=== PATIENT | male | born 1960 | race African-American/Black ===

== ENCOUNTER 2020-06-30 09:11 | Inpatient (IN) ==
[2020-06-30] MEDS ORDERED: MAGNESIUM SULF RIDER 2 GM in PREMIX 1 EACH IV STA (09:17)
[2020-06-30 09:31] LABS: Basophils # 0.1 10*3/uL (0.0-0.2); Basophils % 0.5 % (0.0-0.8); Eosinophils # 0.1 10*3/uL (0.0-0.87); Eosinophils % 0.9 % (0.00-10.9); Hematocrit 49.7 VOL% (42.0-52.0); Hemoglobin 15.3 GM/DL (14.0-18.0); Immature Granulocytes % 0.7 %; Immature Granulocytes Absolute 0.07 #; Lymphocytes # 7.1 10*3/uL (1.4-4.0); Lymphocytes % 67.9 % (21.2-54.2); Mean Corpuscular HGB Conc 30.8 GM/DL (32-36); Mean Corpuscular Volume 93.4 FL (87-102); Mean Platelet Volume 11.4 FL (9.6-12.0); Monocytes % 4.6 % (1.7-12.7); Neutrophils % 25.4 % (38.7-73.9); Platelet Count 128 T/CUMM (130-400); Red Blood Count 5.32 MC/CUMM (3.8-5.5); Red Cell Distribution Width 15.4 % (9.3-17.3); White Blood Count 10.4 T/CUMM (4-12)
[2020-06-30 09:41] LABS: PT Patient Result 10.9 SECS (9.8-11.9); Partial Thromboplastin Time 30.8 SECS (23.9-33.8)
[2020-06-30 09:55] LABS: Eosinophils 2 % (0-10); Lymphocytes 74 % (20-55); Segmented Neutrophils 18 % (50-85); Total Cells Counted 100
[2020-06-30 09:56] LABS: Atypical Lymphocytes Few
[2020-06-30] MEDS ORDERED: BISACODYL 5 MG TABLET PO PRN (10:12)
[2020-06-30] MEDS ORDERED: ENOXAPARIN 80 MG/0.8 ML SYRINGE SUBCUT ONE (10:12)
[2020-06-30] MEDS ORDERED: ACETAMINOPHEN 325 MG TABLET PO PRN (10:12)
[2020-06-30] MEDS ORDERED: ONDANSETRON 4 MG/2 ML VIAL IV PRN (10:12)
[2020-06-30] MEDS ORDERED: ENOXAPARIN 30 MG/0.3 ML SYRINGE ONE (10:12)
[2020-06-30] MEDS ORDERED: ASPIRIN 300 MG SUPP RECTAL ONE (10:12)
[2020-06-30] MEDS ORDERED: ENOXAPARIN 30 MG/0.3 ML SYRINGE IV STA (10:17)
[2020-06-30 10:18] LABS: Bilirubin,Total 0.8 MG/DL (0.2-1.0); Calcium 8.5 MG/DL (8.5-10.1); Osmolality,Calculated 280.7 MOS/KG (273-304); Potassium 3.9 MMOL/L (3.5-5.1)
[2020-06-30] MEDS ORDERED: ASPIRIN 300 MG SUPP RECTAL STA (10:18)
[2020-06-30] MEDS ORDERED: ENOXAPARIN 100 MG/ML SYRINGE SUBCUT STA (10:18)
[2020-06-30] MEDS ORDERED: SODIUM CHLORIDE 0.45% 1,000 ML IV SCH (10:30)
[2020-06-30] MEDS ORDERED: NICOTINE 14 MG/24 HR PATCH TRANSDERM SCH (11:00)
[2020-06-30] MEDS ORDERED: CLOPIDOGREL 300 MG TABLET PO STA (11:51)
[2020-06-30] MEDS: AMIODARONE INJ 450 MG in DEXTROSE 5% 241 ML IV SCH (12:47)
[2020-06-30] MEDS: ROSUVASTATIN 20 MG TABLET PO SCH (13:00)
[2020-06-30] MEDS ORDERED: HEPARIN/NACL 0.9% 2 UNITS/ML 500 ML IV ONE (13:06)
[2020-06-30] MEDS: SODIUM CHLORIDE 0.45% 1,000 ML IV SCH (13:28)
[2020-06-30] MEDS ORDERED: MIDAZOLAM 2 MG/2 ML VIAL IV ONE (13:51)
[2020-06-30] MEDS ORDERED: MIDAZOLAM 2 MG/2 ML VIAL ONE (13:53)
[2020-06-30] MEDS ORDERED: DEXTROSE 50% 25 GM/50 ML VIAL IV PRN (13:58)
[2020-06-30] MEDS ORDERED: GLUCAGON 1 MG VIAL IM PRN (13:58)
[2020-06-30] MEDS ORDERED: MAGNESIUM SULF RIDER 1 GM in PREMIX 1 EACH IV PRN (14:08)
[2020-06-30] MEDS ORDERED: fentaNYL 100 MCG/2 ML VIAL IV ONE (14:30)
[2020-06-30] MEDS ORDERED: CISATRACURIUM 10 MG/5 ML VIAL IV ONE (14:30)
[2020-06-30] MEDS: CISATRACURIUM 200 MG in SODIUM CHLORIDE 0.9% 180 ML IV PRN (15:00)
[2020-06-30] MEDS: fentaNYL INJ 1,250 MCG in SODIUM CHLORIDE 0.9% 225 ML IV PRN ×2 (15:00→23:00)
[2020-06-30 15:28] LABS: ABG Base Excess -1.9 MMOL/L (-2.5-2.5); ABG HCO3 22.9 MMOL/L (20-26); ABG TCO2 17.9 MMOL/L (23-27)
[2020-06-30] MEDS: METOPROLOL TARTRATE 25 MG TABLET PO SCH ×2 (15:50→20:30)
[2020-06-30] MEDS: MINERAL OIL/PETROLATUM OPH OINT 3.5 GM TUBE BOTH EYES SCH ×2 (15:51→20:30)
[2020-06-30 15:56] LABS: CKMB % 2.8 %
[2020-06-30 16:04] LABS: Troponin I 4.99 NG/ML (0.00-0.045)
[2020-06-30 16:14] LABS: Bilirubin,Urine Negative (Negative); Blood, Urine Large mg/dL (Negative); Glucose,Urine (UA) 50 mg/dL (Negative); Ketones,Urine Negative (Negative); Nitrite,Urine Negative (Negative); Protein,Urine >=500 MG/DL; Urine Appearance CLEAR (Clear); Urine Color Yellow (Yellow); Urine Specific Gravity > 1.060 (1.001-1.035); Urine Urobilinogen < 2.0 EU/DL (0.2-1.0)
[2020-06-30 16:21] LABS: Mucus,Urine Occasional /LPF (Occasional); RBC,Urine 57 /HPF (0-4); Squamous Epithelial Cell,Urine Occasional /HPF (0-10)
[2020-06-30 16:44] LABS: Basophils % 0.2 % (0.0-0.8); Hematocrit 43.4 VOL% (42.0-52.0); Hemoglobin 14.9 GM/DL (14.0-18.0); Immature Granulocytes % 0.7 %; Immature Granulocytes Absolute 0.06 #; Lymphocytes # 0.9 10*3/uL (1.4-4.0); Lymphocytes % 9.3 % (21.2-54.2); Mean Corpuscular HGB Conc 34.3 GM/DL (32-36); Mean Corpuscular Volume 86.5 FL (87-102); Mean Platelet Volume 12.3 FL (9.6-12.0); Monocytes % 9.1 % (1.7-12.7); Neutrophils % 80.7 % (38.7-73.9); Platelet Count 152 T/CUMM (130-400); Red Blood Count 5.02 MC/CUMM (3.8-5.5); Red Cell Distribution Width 15.1 % (9.3-17.3); White Blood Count 9.1 T/CUMM (4-12)
[2020-06-30 16:45] LABS: Albumin 3.3 G/DL (3.4-5.0); Bilirubin,Total 0.6 MG/DL (0.2-1.0); Calcium 8.9 MG/DL (8.5-10.1); Osmolality,Calculated 274.8 MOS/KG (273-304); Potassium 4.2 MMOL/L (3.5-5.1); Total Protein 6.7 G/DL (6.4-8.3)
[2020-06-30 16:51] LABS: PT Patient Result 10.7 SECS (9.8-11.9); Partial Thromboplastin Time 36.4 SECS (23.9-33.8)
[2020-06-30] MEDS: INSULIN REGULAR 100 UNIT/ML IV SCH ×2 (17:02→21:46)
[2020-06-30 17:24] LABS: Barbiturates Screen,Urine Negative (Negative); Benzodiazepines Screen,Urine Negative (Negative); Cannabinoid Screen,Urine Negative (Negative); Opiate Screen,Urine Negative (Negative); Phencyclidine Screen,Urine Negative (Negative)
[2020-06-30 20:57] LABS: ABG Base Excess -2.4 MMOL/L (-2.5-2.5); ABG HCO3 22.4 MMOL/L (20-26); ABG Oxygen Saturation 99.1 % (95-100); ABG PCO2 29.3 MM HG (35-48); ABG PH 7.447 (7.35-7.45); ABG TCO2 17.2 MMOL/L (23-27)
[2020-06-30 21:05] LABS: Basophils % 0.3 % (0.0-0.8); Eosinophils % 0.1 % (0.00-10.9); Hematocrit 43.3 VOL% (42.0-52.0); Immature Granulocytes % 0.3 %; Immature Granulocytes Absolute 0.02 #; Lymphocytes # 1.2 10*3/uL (1.4-4.0); Lymphocytes % 17.5 % (21.2-54.2); Mean Corpuscular HGB Conc 34.6 GM/DL (32-36); Mean Corpuscular Volume 84.7 FL (87-102); Mean Platelet Volume 10.9 FL (9.6-12.0); Monocytes % 6.7 % (1.7-12.7); Neutrophils % 75.1 % (38.7-73.9); Platelet Count 136 T/CUMM (130-400); Red Blood Count 5.11 MC/CUMM (3.8-5.5); Red Cell Distribution Width 14.6 % (9.3-17.3); White Blood Count 6.7 T/CUMM (4-12)
[2020-06-30 21:17] LABS: PT Patient Result 10.3 SECS (9.8-11.9); Partial Thromboplastin Time 37.9 SECS (23.9-33.8)
[2020-06-30 21:32] LABS: Calcium 8.5 MG/DL (8.5-10.1); Osmolality,Calculated 278.5 MOS/KG (273-304)
[2020-06-30 21:34] LABS: Anisocytosis Slight; Lymphocytes 21 % (20-55); Microcytosis Slight; Platelet Estimate Adequate; Segmented Neutrophils 71 % (50-85); Total Cells Counted 100
[2020-06-30 21:35] LABS: Troponin I 18.8 NG/ML (0.00-0.045)
[2020-07-01] MEDS: INSULIN REGULAR 100 UNIT/ML IV SCH ×7 (00:39→22:07)
[2020-07-01 03:56] LABS: Basophils % 0.3 % (0.0-0.8); Eosinophils % 0.4 % (0.00-10.9); Hematocrit 43.7 VOL% (42.0-52.0); Hemoglobin 14.5 GM/DL (14.0-18.0); Immature Granulocytes % 0.4 %; Immature Granulocytes Absolute 0.03 #; Lymphocytes # 2.2 10*3/uL (1.4-4.0); Lymphocytes % 30.2 % (21.2-54.2); Mean Corpuscular HGB Conc 33.2 GM/DL (32-36); Mean Corpuscular Volume 88.1 FL (87-102); Mean Platelet Volume 12.3 FL (9.6-12.0); Monocytes % 10.9 % (1.7-12.7); Neutrophils % 57.8 % (38.7-73.9); Platelet Count 125 T/CUMM (130-400); Red Blood Count 4.96 MC/CUMM (3.8-5.5); Red Cell Distribution Width 14.9 % (9.3-17.3); White Blood Count 7.2 T/CUMM (4-12)
[2020-07-01 04:30] LABS: Bilirubin,Urine Negative (Negative); Blood, Urine Moderate mg/dL (Negative); Glucose,Urine (UA) Negative (Negative); Ketones,Urine Negative (Negative); Nitrite,Urine Negative (Negative); Protein,Urine Negative; Urine Appearance CLEAR (Clear); Urine Color Yellow (Yellow); Urine Specific Gravity 1.024 (1.001-1.035); Urine Urobilinogen < 2.0 EU/DL (0.2-1.0)
[2020-07-01 04:34] LABS: RBC,Urine 2 /HPF (0-4); Squamous Epithelial Cell,Urine Occasional /HPF (0-10); WBC,Urine 3 /HPF (0-6)
[2020-07-01] MEDS: AMIODARONE INJ 450 MG in DEXTROSE 5% 241 ML IV SCH (04:40)
[2020-07-01 04:41] LABS: ABG Base Excess -2.5 MMOL/L (-2.5-2.5); ABG HCO3 18.9 MMOL/L (20-26); ABG Oxygen Saturation 98.2 % (95-100); ABG PCO2 24.9 MM HG (35-48); ABG PH 7.497 (7.35-7.45); ABG PO2 105.4 MM HG (80-95); ABG TCO2 19.6 MMOL/L (23-27)
[2020-07-01 04:56] LABS: Albumin 2.7 G/DL (3.4-5.0); Bilirubin,Total 0.9 MG/DL (0.2-1.0); Calcium 8.6 MG/DL (8.5-10.1); Potassium 3.6 MMOL/L (3.5-5.1); Risk Ratio 2.33; Thyroid Stimulating Hormone 1.47 uIU/ml (0.358-3.74); Total Protein 6.6 G/DL (6.4-8.3); VLDL CHOLESTEROL 81.2 MG/DL
[2020-07-01] MEDS: POTASSIUM CHLORIDE RIDER 100 ML IV PRN ×2 (05:49→10:34)
[2020-07-01 06:44] LABS: PT Patient Result 10.5 SECS (9.8-11.9); Partial Thromboplastin Time 33.7 SECS (23.9-33.8)
[2020-07-01 07:03] LABS: Troponin I 74.6 NG/ML (0.00-0.045)
[2020-07-01] MEDS: fentaNYL INJ 1,250 MCG in SODIUM CHLORIDE 0.9% 225 ML IV PRN ×3 (07:15→23:23)
[2020-07-01 09:10] LABS: Basophils # 0.1 10*3/uL (0.0-0.2); Basophils % 0.8 % (0.0-0.8); Eosinophils % 0.5 % (0.00-10.9); Hematocrit 41.8 VOL% (42.0-52.0); Hemoglobin 14.3 GM/DL (14.0-18.0); Immature Granulocytes % 0.2 %; Immature Granulocytes Absolute 0.01 #; Lymphocytes # 2.1 10*3/uL (1.4-4.0); Lymphocytes % 32.4 % (21.2-54.2); Mean Corpuscular HGB Conc 34.2 GM/DL (32-36); Mean Corpuscular Volume 84.1 FL (87-102); Monocytes % 8.5 % (1.7-12.7); Neutrophils % 57.6 % (38.7-73.9); Platelet Count 119 T/CUMM (130-400); Red Blood Count 4.97 MC/CUMM (3.8-5.5); Red Cell Distribution Width 14.5 % (9.3-17.3); White Blood Count 6.3 T/CUMM (4-12)
[2020-07-01] MEDS: ROSUVASTATIN 20 MG TABLET PO SCH (09:18)
[2020-07-01] MEDS: MINERAL OIL/PETROLATUM OPH OINT 3.5 GM TUBE BOTH EYES SCH ×3 (09:18→21:15)
[2020-07-01] MEDS: PANTOPRAZOLE 40 MG VIAL IV SCH (09:18)
[2020-07-01] MEDS: CLOPIDOGREL 75 MG TABLET PO SCH (09:18)
[2020-07-01] MEDS: METOPROLOL TARTRATE 25 MG TABLET PO SCH ×2 (09:18→14:13)
[2020-07-01 09:19] LABS: PT Patient Result 10.4 SECS (9.8-11.9); Partial Thromboplastin Time 31.9 SECS (23.9-33.8)
[2020-07-01 09:46] LABS: CKMB % 5.1 %; Calcium 8.3 MG/DL (8.5-10.1); Osmolality,Calculated 271.8 MOS/KG (273-304); Potassium 3.7 MMOL/L (3.5-5.1)
[2020-07-01] MEDS: SODIUM CHLORIDE 0.45% 1,000 ML IV SCH (09:56)
[2020-07-01] MEDS: CISATRACURIUM 200 MG in SODIUM CHLORIDE 0.9% 180 ML IV PRN (10:16)
[2020-07-01] MEDS: AMIODARONE 200 MG TABLET PO SCH (10:54)
[2020-07-01] MEDS: DEXTROSE 5% NACL 0.9% 1,000 ML IV SCH (12:31)
[2020-07-01 14:43] LABS: Basophils % 0.4 % (0.0-0.8); Eosinophils % 0.3 % (0.00-10.9); Immature Granulocytes % 0.4 %; Immature Granulocytes Absolute 0.03 #; Lymphocytes # 1.8 10*3/uL (1.4-4.0); Lymphocytes % 24.7 % (21.2-54.2); Mean Corpuscular HGB Conc 33.3 GM/DL (32-36); Mean Corpuscular Volume 87.1 FL (87-102); Mean Platelet Volume 10.8 FL (9.6-12.0); Monocytes % 7.8 % (1.7-12.7); Neutrophils % 66.4 % (38.7-73.9); Platelet Count 124 T/CUMM (130-400); Red Blood Count 4.82 MC/CUMM (3.8-5.5); Red Cell Distribution Width 14.8 % (9.3-17.3); White Blood Count 7.4 T/CUMM (4-12)
[2020-07-01 14:54] LABS: PT Patient Result 10.7 SECS (9.8-11.9)
[2020-07-01 15:23] LABS: CKMB % 3.5 %; Calcium 8.1 MG/DL (8.5-10.1); Potassium 3.9 MMOL/L (3.5-5.1)
[2020-07-01] MEDS ORDERED: POTASSIUM CHLORIDE RIDER 20 MEQ in PREMIX 1 EACH IV PRN ×2 (15:39→16:08)
[2020-07-01 20:49] LABS: Basophils % 0.3 % (0.0-0.8); Eosinophils % 0.1 % (0.00-10.9); Hematocrit 41.4 VOL% (42.0-52.0); Hemoglobin 13.6 GM/DL (14.0-18.0); Immature Granulocytes % 0.4 %; Immature Granulocytes Absolute 0.03 #; Lymphocytes # 0.6 10*3/uL (1.4-4.0); Lymphocytes % 8.6 % (21.2-54.2); Mean Corpuscular HGB Conc 32.9 GM/DL (32-36); Mean Corpuscular Volume 87.9 FL (87-102); Mean Platelet Volume 10.9 FL (9.6-12.0); Neutrophils % 82.6 % (38.7-73.9); Platelet Count 117 T/CUMM (130-400); Red Blood Count 4.71 MC/CUMM (3.8-5.5); Red Cell Distribution Width 14.7 % (9.3-17.3)
[2020-07-01 20:59] LABS: PT Patient Result 10.5 SECS (9.8-11.9); Partial Thromboplastin Time 40.7 SECS (23.9-33.8)
[2020-07-01] MEDS ORDERED: INFLUENZA VIRUS VACCINE 0.5 ML SYRINGE IM ONE (21:00)
[2020-07-01 21:05] LABS: Blood Urea Nitrogen 11 MG/DL (7-18); Calcium 8.1 MG/DL (8.5-10.1); Carbon Dioxide 19 MMOL/L (21-32); Estimated Glom Filtration Rate 90 ML/MIN; Glucose 131 MG/DL (74-106); Osmolality,Calculated 275.7 MOS/KG (273-304); Potassium 3.8 MMOL/L (3.5-5.1); Sodium 138 MMOL/L (136-145)
[2020-07-01] MEDS ORDERED: SODIUM CHLORIDE 0.9% 500 ML IV ONE (23:34)
[2020-07-02] MEDS: DEXTROSE 5% NACL 0.9% 1,000 ML IV SCH ×3 (00:10→10:30)
[2020-07-02] MEDS: INSULIN REGULAR 100 UNIT/ML IV SCH ×4 (00:28→07:01)
[2020-07-02] MEDS ORDERED: NOREPINEPHRINE 4 MG/4 ML VIAL IV ONE (02:36)
[2020-07-02] MEDS: NOREPINEPHRINE 8 MG in SODIUM CHLORIDE 0.9% 242 ML IV PRN ×2 (02:47→17:09)
[2020-07-02 05:24] LABS: ABG Base Excess -5.5 MMOL/L (-2.5-2.5); ABG HCO3 19.9 MMOL/L (20-26); ABG Oxygen Saturation 97.2 % (95-100); ABG PCO2 32.2 MM HG (35-48); ABG PH 7.373 (7.35-7.45); ABG PO2 98.8 MM HG (80-95); ABG TCO2 16.3 MMOL/L (23-27)
[2020-07-02] MEDS ORDERED: LORazepam 2 MG/1 ML VIAL IV STA (05:37)
[2020-07-02] MEDS ORDERED: LORazepam 2 MG/1 ML VIAL IV ONE (06:05)
[2020-07-02 06:07] LABS: Albumin 2.4 G/DL (3.4-5.0); Bilirubin,Total 0.9 MG/DL (0.2-1.0); Calcium 8.1 MG/DL (8.5-10.1); Osmolality,Calculated 274.7 MOS/KG (273-304); Potassium 4.5 MMOL/L (3.5-5.1); Total Protein 5.8 G/DL (6.4-8.3)
[2020-07-02 06:48] LABS: CKMB % 2.6 %
[2020-07-02 06:49] LABS: Troponin I 92.4 NG/ML (0.00-0.045)
[2020-07-02] MEDS: fentaNYL INJ 1,250 MCG in SODIUM CHLORIDE 0.9% 225 ML IV PRN ×3 (07:05→21:31)
[2020-07-02 07:09] LABS: Basophils % 0.2 % (0.0-0.8); Eosinophils % 0.2 % (0.00-10.9); Hematocrit 40.3 VOL% (42.0-52.0); Immature Granulocytes % 0.7 %; Immature Granulocytes Absolute 0.06 #; Lymphocytes # 0.9 10*3/uL (1.4-4.0); Lymphocytes % 10.3 % (21.2-54.2); Mean Corpuscular HGB Conc 34.7 GM/DL (32-36); Mean Corpuscular Volume 87.6 FL (87-102); Mean Platelet Volume 11.9 FL (9.6-12.0); Monocytes % 6.7 % (1.7-12.7); Neutrophils % 81.9 % (38.7-73.9); Platelet Count 107 T/CUMM (130-400); Red Cell Distribution Width 15.3 % (9.3-17.3); White Blood Count 8.5 T/CUMM (4-12)
[2020-07-02 07:17] LABS: PT Patient Result 10.8 SECS (9.8-11.9)
[2020-07-02 07:19] LABS: Partial Thromboplastin Time 72.3 SECS (23.9-33.8)
[2020-07-02] MEDS: HEPARIN 5,000 UNIT/1 ML VIAL SUBCUT SCH ×2 (09:33→17:15)
[2020-07-02] MEDS: AMIODARONE 200 MG TABLET PO SCH (09:51)
[2020-07-02] MEDS: LOSARTAN 25 MG TABLET PO SCH (09:52)
[2020-07-02] MEDS: ROSUVASTATIN 20 MG TABLET PO SCH (09:52)
[2020-07-02] MEDS: CLOPIDOGREL 75 MG TABLET PO SCH (09:52)
[2020-07-02] MEDS: ASPIRIN CHEW 81 MG TABLET PO SCH (09:52)
[2020-07-02] MEDS: PANTOPRAZOLE 40 MG VIAL IV SCH (09:52)
[2020-07-02] MEDS: cefTRIAXone 1,000 MG in SYRINGE 1 EACH IV SCH (09:55)
[2020-07-02 10:29] LABS: Basophils % 0.2 % (0.0-0.8); Eosinophils % 0.1 % (0.00-10.9); Hematocrit 41.3 VOL% (42.0-52.0); Immature Granulocytes Absolute 0.16 #; Lymphocytes # 1.3 10*3/uL (1.4-4.0); Lymphocytes % 8.4 % (21.2-54.2); Mean Corpuscular HGB Conc 31.5 GM/DL (32-36); Mean Platelet Volume 11.5 FL (9.6-12.0); Monocytes % 6.6 % (1.7-12.7); NRBC # 0.02 10*3/uL; Neutrophils % 83.7 % (38.7-73.9); Platelet Count 138 T/CUMM (130-400); Red Blood Count 4.54 MC/CUMM (3.8-5.5); Red Cell Distribution Width 15.6 % (9.3-17.3); White Blood Count 15.7 T/CUMM (4-12)
[2020-07-02] MEDS ORDERED: SODIUM CHLORIDE 0.9% 500 ML IV ONE (10:31)
[2020-07-02] MEDS: SODIUM BICARB INJ 100 MEQ in DEXTROSE 5% 1,000 ML IV SCH ×2 (10:39→22:14)
[2020-07-02] MEDS: MINERAL OIL/PETROLATUM OPH OINT 3.5 GM TUBE BOTH EYES SCH ×3 (10:39→22:12)
[2020-07-02 10:41] LABS: INR 0.9; PT Patient Result 10.2 SECS (9.8-11.9); Partial Thromboplastin Time 33.6 SECS (23.9-33.8)
[2020-07-02 10:51] LABS: Band Neutrophils 5 % (0-10); Calcium 8.2 MG/DL (8.5-10.1); Hypochromasia 1+; Lymphocytes 6 % (20-55); Osmolality,Calculated 273.8 MOS/KG (273-304); Potassium 4.7 MMOL/L (3.5-5.1); Segmented Neutrophils 83 % (50-85); Total Cells Counted 100
[2020-07-02 10:52] LABS: Microcytosis Slight; Platelet Estimate Adequate
[2020-07-02] MEDS: INSULIN REGULAR 100 UNIT/ML SUBCUT SCH ×4 (10:53→22:41)
[2020-07-02] MEDS ORDERED: FUROSEMIDE 40 MG/4 ML VIAL IV ONE (11:17)
[2020-07-02 17:48] LABS: Basophils % 0.2 % (0.0-0.8); Eosinophils % 0.1 % (0.00-10.9); Hematocrit 37.9 VOL% (42.0-52.0); Hemoglobin 12.1 GM/DL (14.0-18.0); Immature Granulocytes % 0.6 %; Immature Granulocytes Absolute 0.08 #; Lymphocytes # 1.9 10*3/uL (1.4-4.0); Lymphocytes % 14.5 % (21.2-54.2); Mean Corpuscular HGB Conc 31.9 GM/DL (32-36); Monocytes % 7.7 % (1.7-12.7); Neutrophils % 76.9 % (38.7-73.9); Platelet Count 124 T/CUMM (130-400); Red Blood Count 4.21 MC/CUMM (3.8-5.5); Red Cell Distribution Width 15.5 % (9.3-17.3); White Blood Count 13.1 T/CUMM (4-12)
[2020-07-02 17:55] LABS: PT Patient Result 10.4 SECS (9.8-11.9); Partial Thromboplastin Time 35.2 SECS (23.9-33.8)
[2020-07-02 18:15] LABS: Calcium 8.1 MG/DL (8.5-10.1); Osmolality,Calculated 272.8 MOS/KG (273-304)
[2020-07-02 18:26] LABS: Anisocytosis Slight; Hypochromasia Slight; Platelet Estimate Adequate
[2020-07-03] MEDS: fentaNYL INJ 1,250 MCG in SODIUM CHLORIDE 0.9% 225 ML IV PRN ×3 (01:30→12:45)
[2020-07-03] MEDS: NOREPINEPHRINE 8 MG in SODIUM CHLORIDE 0.9% 242 ML IV PRN ×2 (03:21→14:59)
[2020-07-03] MEDS: HEPARIN 5,000 UNIT/1 ML VIAL SUBCUT SCH ×3 (03:38→17:34)
[2020-07-03 03:39] LABS: ABG Base Excess -2.5 MMOL/L (-2.5-2.5); ABG HCO3 22.3 MMOL/L (20-26); ABG Oxygen Saturation 98.9 % (95-100); ABG PCO2 37.2 MM HG (35-48); ABG PH 7.383 (7.35-7.45); ABG TCO2 19.8 MMOL/L (23-27)
[2020-07-03] MEDS ORDERED: LORazepam 2 MG/1 ML VIAL IV PRN (03:54)
[2020-07-03 04:31] LABS: Bilirubin,Total 1.1 MG/DL (0.2-1.0); Calcium 8.2 MG/DL (8.5-10.1); Osmolality,Calculated 275.7 MOS/KG (273-304); Potassium 3.4 MMOL/L (3.5-5.1); Total Protein 5.5 G/DL (6.4-8.3)
[2020-07-03] MEDS: INSULIN REGULAR 100 UNIT/ML SUBCUT SCH ×6 (05:53→23:42)
[2020-07-03] MEDS: PANTOPRAZOLE 40 MG VIAL IV SCH (09:20)
[2020-07-03] MEDS: cefTRIAXone 1,000 MG in SYRINGE 1 EACH IV SCH (09:22)
[2020-07-03] MEDS: SODIUM BICARB INJ 100 MEQ in DEXTROSE 5% 1,000 ML IV SCH (09:26)
[2020-07-03] MEDS: POTASSIUM CHLORIDE RIDER 10 MEQ in PREMIX 1 EACH IV PRN ×2 (09:26→12:54)
[2020-07-03] MEDS: LOSARTAN 25 MG TABLET PO SCH (09:27)
[2020-07-03] MEDS: MINERAL OIL/PETROLATUM OPH OINT 3.5 GM TUBE BOTH EYES SCH ×3 (09:29→21:04)
[2020-07-03] MEDS: ROSUVASTATIN 20 MG TABLET PO SCH (09:29)
[2020-07-03] MEDS: AMIODARONE 200 MG TABLET PO SCH (09:29)
[2020-07-03] MEDS: ASPIRIN CHEW 81 MG TABLET PO SCH (09:29)
[2020-07-03] MEDS: CLOPIDOGREL 75 MG TABLET PO SCH (09:29)
[2020-07-03] MEDS ORDERED: FUROSEMIDE 40 MG/4 ML VIAL IV ONE ×2 (14:25→16:37)
[2020-07-03] MEDS ORDERED: FUROSEMIDE 40 MG/4 ML VIAL ONE (14:30)
[2020-07-03 16:17] LABS: ABG Base Excess -3.4 MMOL/L (-2.5-2.5); ABG HCO3 21.2 MMOL/L (20-26); ABG Oxygen Saturation 77.3 % (95-100); ABG PCO2 58.3 MM HG (35-48); ABG PH 7.242 (7.35-7.45); ABG PO2 51.1 MM HG (80-95); ABG TCO2 22.9 MMOL/L (23-27)
[2020-07-03 18:02] LABS: Basophils % 0.2 % (0.0-0.8); Eosinophils % 0.2 % (0.00-10.9); Hematocrit 38.6 VOL% (42.0-52.0); Hemoglobin 12.2 GM/DL (14.0-18.0); Immature Granulocytes % 0.7 %; Immature Granulocytes Absolute 0.07 #; Mean Corpuscular HGB Conc 31.6 GM/DL (32-36); Mean Corpuscular Volume 92.8 FL (87-102); Mean Platelet Volume 12.6 FL (9.6-12.0); Monocytes % 4.7 % (1.7-12.7); Neutrophils % 84.2 % (38.7-73.9); Platelet Count 110 T/CUMM (130-400); Red Blood Count 4.16 MC/CUMM (3.8-5.5); Red Cell Distribution Width 15.7 % (9.3-17.3); White Blood Count 9.5 T/CUMM (4-12)
[2020-07-03] MEDS: DOBUTamine 500 MG/250 ML PREMIX IV SCH (18:05)
[2020-07-03 18:19] LABS: Calcium 8.3 MG/DL (8.5-10.1); Osmolality,Calculated 274.7 MOS/KG (273-304); Potassium 4.3 MMOL/L (3.5-5.1)
[2020-07-03] MEDS: methylPREDNISolone SOD SUC 40 MG/1 ML VIAL IV SCH (18:20)
[2020-07-03] MEDS: FUROSEMIDE INJ 100 MG in SODIUM CHLORIDE 0.9% 90 ML IV SCH (18:35)
[2020-07-03] MEDS ORDERED: MAGNESIUM SULF RIDER 2 GM in PREMIX 1 EACH IV ONE (19:21)
[2020-07-03 20:12] LABS: ABG Base Excess -3.8 MMOL/L (-2.5-2.5); ABG HCO3 21.5 MMOL/L (20-26); ABG Oxygen Saturation 99.2 % (95-100); ABG PCO2 40.3 MM HG (35-48); ABG PH 7.346 (7.35-7.45); ABG PO2 213.5 MM HG (80-95); ABG TCO2 22.8 MMOL/L (23-27)
[2020-07-04] MEDS: HEPARIN 5,000 UNIT/1 ML VIAL SUBCUT SCH ×3 (01:47→17:10)
[2020-07-04] MEDS: methylPREDNISolone SOD SUC 40 MG/1 ML VIAL IV SCH ×4 (01:47→17:10)
[2020-07-04] MEDS: FUROSEMIDE INJ 100 MG in SODIUM CHLORIDE 0.9% 90 ML IV SCH ×3 (03:42→23:34)
[2020-07-04] MEDS ORDERED: HEPARIN DRIP 0 UNITS/0 ML PREMIX IV ONE (03:48)
[2020-07-04] MEDS ORDERED: HEPARIN/NACL 0.9% 2 UNITS/ML 500 ML IV ONE (03:50)
[2020-07-04 04:21] LABS: ABG Base Excess -0.9 MMOL/L (-2.5-2.5); ABG HCO3 23.7 MMOL/L (20-26); ABG TCO2 19.5 MMOL/L (23-27)
[2020-07-04 04:37] LABS: Basophils % 0.2 % (0.0-0.8); Hematocrit 36.5 VOL% (42.0-52.0); Hemoglobin 12.2 GM/DL (14.0-18.0); Immature Granulocytes Absolute 0.23 #; Lymphocytes # 0.4 10*3/uL (1.4-4.0); Lymphocytes % 3.4 % (21.2-54.2); Mean Corpuscular HGB Conc 33.4 GM/DL (32-36); Mean Corpuscular Volume 87.1 FL (87-102); Mean Platelet Volume 11.8 FL (9.6-12.0); Monocytes % 3.6 % (1.7-12.7); Neutrophils % 90.8 % (38.7-73.9); Platelet Count 105 T/CUMM (130-400); Red Blood Count 4.19 MC/CUMM (3.8-5.5); Red Cell Distribution Width 15.1 % (9.3-17.3); White Blood Count 11.7 T/CUMM (4-12)
[2020-07-04 04:53] LABS: Calcium 8.9 MG/DL (8.5-10.1); Osmolality,Calculated 275.8 MOS/KG (273-304); Potassium 4.2 MMOL/L (3.5-5.1)
[2020-07-04] MEDS ORDERED: NOREPINEPHRINE 4 MG/4 ML VIAL IV ONE ×2 (04:53→04:54)
[2020-07-04] MEDS: NOREPINEPHRINE 8 MG in SODIUM CHLORIDE 0.9% 242 ML IV PRN (05:02)
[2020-07-04 05:05] LABS: Anisocytosis Slight; Lymphocytes 1 % (20-55); Microcytosis 1+; Platelet Estimate Normal; Segmented Neutrophils 96 % (50-85); Total Cells Counted 100
[2020-07-04 05:08] LABS: Polychromasia Slight
[2020-07-04 05:09] LABS: Target Cells 1+
[2020-07-04] MEDS: INSULIN REGULAR 100 UNIT/ML SUBCUT SCH ×5 (06:38→20:50)
[2020-07-04] MEDS ORDERED: AMIODARONE 200 MG TABLET PO SCH (09:00)
[2020-07-04] MEDS: LOSARTAN 25 MG TABLET PO SCH (09:32)
[2020-07-04] MEDS: CLOPIDOGREL 75 MG TABLET PO SCH (09:35)
[2020-07-04] MEDS: ASPIRIN CHEW 81 MG TABLET PO SCH (09:35)
[2020-07-04] MEDS: ROSUVASTATIN 20 MG TABLET PO SCH (09:35)
[2020-07-04] MEDS: PANTOPRAZOLE 40 MG VIAL IV SCH (09:35)
[2020-07-04] MEDS: cefTRIAXone 1,000 MG in SYRINGE 1 EACH IV SCH (09:37)
[2020-07-04] MEDS: MINERAL OIL/PETROLATUM OPH OINT 3.5 GM TUBE BOTH EYES SCH ×3 (09:37→20:51)
[2020-07-04] MEDS: DOBUTamine 500 MG/250 ML PREMIX IV SCH (13:25)
[2020-07-05] MEDS: FUROSEMIDE INJ 100 MG in SODIUM CHLORIDE 0.9% 90 ML IV SCH ×2 (00:16→09:55)
[2020-07-05] MEDS: INSULIN REGULAR 100 UNIT/ML SUBCUT SCH ×6 (00:16→21:51)
[2020-07-05] MEDS: HEPARIN 5,000 UNIT/1 ML VIAL SUBCUT SCH ×3 (00:49→18:23)
[2020-07-05] MEDS: methylPREDNISolone SOD SUC 40 MG/1 ML VIAL IV SCH ×3 (00:49→13:40)
[2020-07-05 04:22] LABS: ABG Base Excess 3.1 MMOL/L (-2.5-2.5); ABG HCO3 27.2 MMOL/L (20-26); ABG PCO2 35.2 MM HG (35-48); ABG PH 7.483 (7.35-7.45); ABG TCO2 23.5 MMOL/L (23-27)
[2020-07-05 04:31] LABS: Basophils % 0.1 % (0.0-0.8); Hematocrit 32.5 VOL% (42.0-52.0); Hemoglobin 10.8 GM/DL (14.0-18.0); Immature Granulocytes % 0.9 %; Lymphocytes # 0.6 10*3/uL (1.4-4.0); Lymphocytes % 5.6 % (21.2-54.2); Mean Corpuscular HGB Conc 33.2 GM/DL (32-36); Mean Corpuscular Volume 87.6 FL (87-102); Mean Platelet Volume 12.5 FL (9.6-12.0); Monocytes % 6.6 % (1.7-12.7); Neutrophils % 86.8 % (38.7-73.9); Platelet Count 125 T/CUMM (130-400); Red Blood Count 3.71 MC/CUMM (3.8-5.5); Red Cell Distribution Width 14.7 % (9.3-17.3); White Blood Count 10.7 T/CUMM (4-12)
[2020-07-05 04:48] LABS: Calcium 8.7 MG/DL (8.5-10.1); Osmolality,Calculated 286.5 MOS/KG (273-304); Potassium 3.5 MMOL/L (3.5-5.1)
[2020-07-05] MEDS: POTASSIUM CHLORIDE RIDER 20 MEQ in PREMIX 1 EACH IV PRN (05:56)
[2020-07-05] MEDS: DOBUTamine 500 MG/250 ML PREMIX IV SCH ×2 (07:40→11:00)
[2020-07-05] MEDS: LOSARTAN 25 MG TABLET PO SCH (09:13)
[2020-07-05] MEDS: ASPIRIN CHEW 81 MG TABLET PO SCH (09:13)
[2020-07-05] MEDS: CLOPIDOGREL 75 MG TABLET PO SCH (09:13)
[2020-07-05] MEDS: ROSUVASTATIN 20 MG TABLET PO SCH (09:13)
[2020-07-05] MEDS: PANTOPRAZOLE 40 MG VIAL IV SCH (09:14)
[2020-07-05] MEDS: MINERAL OIL/PETROLATUM OPH OINT 3.5 GM TUBE BOTH EYES SCH ×3 (09:32→21:30)
[2020-07-05] MEDS: POTASSIUM CHLORIDE RIDER 10 MEQ in PREMIX 1 EACH IV PRN (09:59)
[2020-07-05 11:34] LABS: ABG Base Excess 3.6 MMOL/L (-2.5-2.5); ABG HCO3 27.6 MMOL/L (20-26); ABG Oxygen Saturation 98.7 % (95-100); ABG PCO2 39.9 MM HG (35-48); ABG TCO2 24.8 MMOL/L (23-27)
[2020-07-05] MEDS: DEXMEDETOMIDINE 200 MCG in SODIUM CHLORIDE 0.9% 48 ML IV PRN ×2 (13:00→18:57)
[2020-07-06] MEDS: HEPARIN 5,000 UNIT/1 ML VIAL SUBCUT SCH ×4 (00:55→23:15)
[2020-07-06] MEDS: INSULIN REGULAR 100 UNIT/ML SUBCUT SCH ×7 (00:56→22:59)
[2020-07-06] MEDS: methylPREDNISolone SOD SUC 40 MG/1 ML VIAL IV SCH ×3 (00:57→14:20)
[2020-07-06 04:32] LABS: ABG Base Excess 4.4 MMOL/L (-2.5-2.5); ABG HCO3 28.4 MMOL/L (20-26); ABG Oxygen Saturation 99.1 % (95-100); ABG PCO2 42.3 MM HG (35-48); ABG PH 7.443 (7.35-7.45); ABG TCO2 25.7 MMOL/L (23-27); Hematocrit 33.9 VOL% (42.0-52.0); Hemoglobin 11.1 GM/DL (14.0-18.0); Immature Granulocytes Absolute 0.11 #; Lymphocytes # 0.8 10*3/uL (1.4-4.0); Lymphocytes % 7.1 % (21.2-54.2); Mean Corpuscular HGB Conc 32.7 GM/DL (32-36); Mean Corpuscular Volume 87.4 FL (87-102); Mean Platelet Volume 11.8 FL (9.6-12.0); Monocytes % 5.7 % (1.7-12.7); Neutrophils % 86.2 % (38.7-73.9); Platelet Count 142 T/CUMM (130-400); Red Blood Count 3.88 MC/CUMM (3.8-5.5); Red Cell Distribution Width 14.8 % (9.3-17.3); White Blood Count 10.9 T/CUMM (4-12)
[2020-07-06 05:00] LABS: Calcium 8.4 MG/DL (8.5-10.1); Osmolality,Calculated 295.4 MOS/KG (273-304); Potassium 3.7 MMOL/L (3.5-5.1)
[2020-07-06 05:02] LABS: Uric Acid 6.1 MG/DL (3.5-7.2)
[2020-07-06] MEDS: DEXMEDETOMIDINE 200 MCG in SODIUM CHLORIDE 0.9% 48 ML IV PRN ×3 (06:15→14:14)
[2020-07-06] MEDS: DOBUTamine 500 MG/250 ML PREMIX IV SCH (07:49)
[2020-07-06 08:20] LABS: Bilirubin,Urine Negative (Negative); Blood, Urine Small mg/dL (Negative); Glucose,Urine (UA) Negative (Negative); Ketones,Urine Negative (Negative); Nitrite,Urine Negative (Negative); Protein,Urine Negative; Urine Appearance CLEAR (Clear); Urine Color Yellow (Yellow); Urine Specific Gravity 1.016 (1.001-1.035); Urine Urobilinogen < 2.0 EU/DL (0.2-1.0)
[2020-07-06 08:24] LABS: Bacteria,Urine Occasional /HPF (Few); Hyaline Casts,Urine 4 /LPF (0-3); Mucus,Urine Occasional /LPF (Occasional); RBC,Urine 2 /HPF (0-4); Squamous Epithelial Cell,Urine Occasional /HPF (0-10); WBC,Urine 3 /HPF (0-6)
[2020-07-06] MEDS: CLOPIDOGREL 75 MG TABLET PO SCH (09:20)
[2020-07-06] MEDS: ROSUVASTATIN 20 MG TABLET PO SCH (09:20)
[2020-07-06] MEDS: ASPIRIN CHEW 81 MG TABLET PO SCH (09:20)
[2020-07-06] MEDS: PANTOPRAZOLE 40 MG VIAL IV SCH (09:20)
[2020-07-06] MEDS: MINERAL OIL/PETROLATUM OPH OINT 3.5 GM TUBE BOTH EYES SCH ×3 (09:21→23:14)
[2020-07-06] MEDS ORDERED: MIDAZOLAM 100 MG in SODIUM CHLORIDE 0.9% 80 ML IV PRN (11:46)
[2020-07-07] MEDS: DOBUTamine 500 MG/250 ML PREMIX IV SCH ×2 (01:10→22:15)
[2020-07-07] MEDS: methylPREDNISolone SOD SUC 40 MG/1 ML VIAL IV SCH ×2 (01:16→16:00)
[2020-07-07 03:58] LABS: Basophils % 0.1 % (0.0-0.8); Eosinophils % 0.2 % (0.00-10.9); Hematocrit 35.2 VOL% (42.0-52.0); Hemoglobin 11.8 GM/DL (14.0-18.0); Immature Granulocytes % 0.3 %; Immature Granulocytes Absolute 0.03 #; Lymphocytes # 0.7 10*3/uL (1.4-4.0); Mean Corpuscular HGB Conc 33.5 GM/DL (32-36); Mean Corpuscular Volume 87.3 FL (87-102); Mean Platelet Volume 12.4 FL (9.6-12.0); Monocytes % 6.8 % (1.7-12.7); Neutrophils % 84.6 % (38.7-73.9); Platelet Count 132 T/CUMM (130-400); Red Blood Count 4.03 MC/CUMM (3.8-5.5); Red Cell Distribution Width 14.8 % (9.3-17.3); White Blood Count 8.7 T/CUMM (4-12)
[2020-07-07 04:14] LABS: Osmolality,Calculated 307.7 MOS/KG (273-304); Potassium 3.7 MMOL/L (3.5-5.1)
[2020-07-07 04:21] LABS: ABG Base Excess 8.4 MMOL/L (-2.5-2.5); ABG HCO3 32.8 MMOL/L (20-26); ABG Oxygen Saturation 95.8 % (95-100); ABG PCO2 44.5 MM HG (35-48); ABG PH 7.485 (7.35-7.45); ABG PO2 82.3 MM HG (80-95); ABG TCO2 34.1 MMOL/L (23-27)
[2020-07-07] MEDS: INSULIN REGULAR 100 UNIT/ML SUBCUT SCH ×5 (04:28→20:18)
[2020-07-07] MEDS: POTASSIUM CHLORIDE RIDER 20 MEQ in PREMIX 1 EACH IV PRN (04:40)
[2020-07-07] MEDS: ROSUVASTATIN 20 MG TABLET PO SCH (09:03)
[2020-07-07] MEDS: HEPARIN 5,000 UNIT/1 ML VIAL SUBCUT SCH ×2 (09:03→16:07)
[2020-07-07] MEDS: ASPIRIN CHEW 81 MG TABLET PO SCH (09:03)
[2020-07-07] MEDS: CLOPIDOGREL 75 MG TABLET PO SCH (09:04)
[2020-07-07] MEDS: PANTOPRAZOLE 40 MG VIAL IV SCH (09:04)
[2020-07-07] MEDS: MINERAL OIL/PETROLATUM OPH OINT 3.5 GM TUBE BOTH EYES SCH ×3 (09:04→22:15)
[2020-07-07] MEDS: POTASSIUM CHLORIDE 20 MEQ/15 ML UDCUP PER TUBE SCH ×3 (09:24→18:21)
[2020-07-07] MEDS ORDERED: FUROSEMIDE 100 MG/10 ML VIAL IV ONE (10:00)
[2020-07-07] MEDS ORDERED: HALOPERIDOL 5 MG/ML AMP IM PRN (17:24)
[2020-07-08] MEDS: INSULIN REGULAR 100 UNIT/ML SUBCUT SCH ×6 (00:19→21:17)
[2020-07-08] MEDS: HEPARIN 5,000 UNIT/1 ML VIAL SUBCUT SCH ×3 (00:57→15:52)
[2020-07-08] MEDS: methylPREDNISolone SOD SUC 40 MG/1 ML VIAL IV SCH ×2 (02:08→10:56)
[2020-07-08 04:13] LABS: ABG Base Excess 8.2 MMOL/L (-2.5-2.5); ABG HCO3 31.9 MMOL/L (20-26); ABG Oxygen Saturation 96.1 % (95-100); ABG PCO2 40.6 MM HG (35-48); ABG PH 7.513 (7.35-7.45); ABG PO2 81.1 MM HG (80-95); ABG TCO2 33.1 MMOL/L (23-27)
[2020-07-08 04:47] LABS: Basophils % 0.1 % (0.0-0.8); Eosinophils % 0.1 % (0.00-10.9); Hematocrit 37.1 VOL% (42.0-52.0); Hemoglobin 12.3 GM/DL (14.0-18.0); Immature Granulocytes % 0.4 %; Immature Granulocytes Absolute 0.06 #; Lymphocytes # 0.7 10*3/uL (1.4-4.0); Lymphocytes % 5.1 % (21.2-54.2); Mean Corpuscular HGB Conc 33.2 GM/DL (32-36); Mean Corpuscular Volume 87.3 FL (87-102); Mean Platelet Volume 12.1 FL (9.6-12.0); Monocytes % 4.9 % (1.7-12.7); Neutrophils % 89.4 % (38.7-73.9); Platelet Count 153 T/CUMM (130-400); Red Blood Count 4.25 MC/CUMM (3.8-5.5); White Blood Count 14.4 T/CUMM (4-12)
[2020-07-08 05:03] LABS: Calcium 8.7 MG/DL (8.5-10.1); Osmolality,Calculated 301.7 MOS/KG (273-304); Potassium 4.2 MMOL/L (3.5-5.1)
[2020-07-08] MEDS ORDERED: FUROSEMIDE 100 MG/10 ML VIAL IV ONE (09:00)
[2020-07-08] MEDS: MINERAL OIL/PETROLATUM OPH OINT 3.5 GM TUBE BOTH EYES SCH ×3 (10:20→21:17)
[2020-07-08] MEDS: ROSUVASTATIN 20 MG TABLET PO SCH (10:53)
[2020-07-08] MEDS: CLOPIDOGREL 75 MG TABLET PO SCH (10:53)
[2020-07-08] MEDS: ASPIRIN CHEW 81 MG TABLET PO SCH (10:53)
[2020-07-08] MEDS: PANTOPRAZOLE 40 MG VIAL IV SCH (10:54)
[2020-07-08] MEDS: amLODIPine 10 MG TABLET PO SCH (15:16)
[2020-07-08] MEDS ORDERED: LACTATED RINGERS 1,000 ML IV ONE (15:17)
[2020-07-09] MEDS: HEPARIN 5,000 UNIT/1 ML VIAL SUBCUT SCH ×3 (00:41→16:09)
[2020-07-09] MEDS: INSULIN REGULAR 100 UNIT/ML SUBCUT SCH ×6 (01:25→21:25)
[2020-07-09] MEDS ORDERED: hydrALAZINE 20 MG/1 ML VIAL IV PRN (04:38)
[2020-07-09] MEDS ORDERED: LABETALOL 20 MG/4 ML SYRINGE IV PRN (04:40)
[2020-07-09 05:39] LABS: Basophils % 0.2 % (0.0-0.8); Eosinophils # 0.4 10*3/uL (0.0-0.87); Eosinophils % 3.8 % (0.00-10.9); Hematocrit 43.8 VOL% (42.0-52.0); Hemoglobin 14.7 GM/DL (14.0-18.0); Immature Granulocytes % 0.5 %; Immature Granulocytes Absolute 0.05 #; Lymphocytes # 1.6 10*3/uL (1.4-4.0); Lymphocytes % 15.3 % (21.2-54.2); Mean Corpuscular HGB Conc 33.6 GM/DL (32-36); Mean Corpuscular Volume 85.7 FL (87-102); Monocytes % 7.2 % (1.7-12.7); Platelet Count 181 T/CUMM (130-400); Red Blood Count 5.11 MC/CUMM (3.8-5.5); Red Cell Distribution Width 14.5 % (9.3-17.3); White Blood Count 10.3 T/CUMM (4-12)
[2020-07-09 06:01] LABS: Calcium 8.9 MG/DL (8.5-10.1); Osmolality,Calculated 294.3 MOS/KG (273-304); Potassium 3.5 MMOL/L (3.5-5.1)
[2020-07-09] MEDS: ASPIRIN CHEW 81 MG TABLET PO SCH (09:21)
[2020-07-09] MEDS: ROSUVASTATIN 20 MG TABLET PO SCH (09:21)
[2020-07-09] MEDS: MINERAL OIL/PETROLATUM OPH OINT 3.5 GM TUBE BOTH EYES SCH ×3 (09:22→21:21)
[2020-07-09] MEDS: amLODIPine 10 MG TABLET PO SCH (09:22)
[2020-07-09] MEDS: CLOPIDOGREL 75 MG TABLET PO SCH (09:22)
[2020-07-09] MEDS: PANTOPRAZOLE 40 MG VIAL IV SCH (09:23)
[2020-07-09] MEDS: methylPREDNISolone SOD SUC 40 MG/1 ML VIAL IV SCH (09:24)
[2020-07-09] MEDS ORDERED: METOPROLOL SUCCINATE XL 25 MG TABLET PO SCH (10:56)
[2020-07-09] MEDS: carvediloL 6.25 MG TABLET PO SCH (21:19)
[2020-07-10] MEDS: HEPARIN 5,000 UNIT/1 ML VIAL SUBCUT SCH ×3 (00:42→15:22)
[2020-07-10] MEDS: INSULIN REGULAR 100 UNIT/ML SUBCUT SCH ×6 (04:57→22:51)
[2020-07-10] MEDS: ASPIRIN CHEW 81 MG TABLET PO SCH (08:56)
[2020-07-10] MEDS: ROSUVASTATIN 20 MG TABLET PO SCH (08:56)
[2020-07-10] MEDS: carvediloL 6.25 MG TABLET PO SCH ×2 (08:56→17:45)
[2020-07-10] MEDS: amLODIPine 10 MG TABLET PO SCH (08:57)
[2020-07-10] MEDS: CLOPIDOGREL 75 MG TABLET PO SCH (08:57)
[2020-07-10] MEDS: PANTOPRAZOLE 40 MG VIAL IV SCH (08:58)
[2020-07-10] MEDS: methylPREDNISolone SOD SUC 40 MG/1 ML VIAL IV SCH (09:00)
[2020-07-10] MEDS: MINERAL OIL/PETROLATUM OPH OINT 3.5 GM TUBE BOTH EYES SCH ×3 (09:06→21:22)
[2020-07-10] MEDS: predniSONE 10 MG TABLET PO SCH (12:10)
[2020-07-10 14:04] LABS: Basophils % 0.3 % (0.0-0.8); Eosinophils # 0.1 10*3/uL (0.0-0.87); Hematocrit 44.2 VOL% (42.0-52.0); Hemoglobin 14.5 GM/DL (14.0-18.0); Immature Granulocytes % 0.7 %; Immature Granulocytes Absolute 0.05 #; Lymphocytes # 0.9 10*3/uL (1.4-4.0); Lymphocytes % 12.4 % (21.2-54.2); Mean Corpuscular HGB Conc 32.8 GM/DL (32-36); Mean Corpuscular Volume 85.5 FL (87-102); Mean Platelet Volume 11.4 FL (9.6-12.0); Neutrophils % 80.6 % (38.7-73.9); Platelet Count 254 T/CUMM (130-400); Red Blood Count 5.17 MC/CUMM (3.8-5.5); Red Cell Distribution Width 14.4 % (9.3-17.3)
[2020-07-10 14:28] LABS: Calcium 8.9 MG/DL (8.5-10.1); Potassium 3.8 MMOL/L (3.5-5.1)
[2020-07-10] MEDS: AMIODARONE 200 MG TABLET PO SCH (14:35)
[2020-07-10 17:08] LABS: Bilirubin,Urine Negative (Negative); Blood, Urine Negative (Negative); Glucose,Urine (UA) Negative (Negative); Ketones,Urine Negative (Negative); Nitrite,Urine Negative (Negative); Protein,Urine 30 MG/DL; RBC,Urine 2 /HPF (0-4); Urine Appearance CLEAR (Clear); Urine Color Yellow (Yellow); Urine Specific Gravity 1.021 (1.001-1.035); WBC,Urine 37 /HPF (0-6)
[2020-07-11] MEDS: HEPARIN 5,000 UNIT/1 ML VIAL SUBCUT SCH ×2 (01:17→09:35)
[2020-07-11] MEDS: INSULIN REGULAR 100 UNIT/ML SUBCUT SCH ×4 (01:20→11:10)
[2020-07-11 05:52] LABS: Basophils % 0.4 % (0.0-0.8); Eosinophils # 0.3 10*3/uL (0.0-0.87); Eosinophils % 3.3 % (0.00-10.9); Hematocrit 44.1 VOL% (42.0-52.0); Hemoglobin 14.6 GM/DL (14.0-18.0); Immature Granulocytes % 0.8 %; Immature Granulocytes Absolute 0.06 #; Lymphocytes # 2.7 10*3/uL (1.4-4.0); Lymphocytes % 34.4 % (21.2-54.2); Mean Corpuscular HGB Conc 33.1 GM/DL (32-36); Mean Corpuscular Volume 85.6 FL (87-102); Mean Platelet Volume 12.1 FL (9.6-12.0); Monocytes % 13.2 % (1.7-12.7); Neutrophils % 47.9 % (38.7-73.9); Platelet Count 234 T/CUMM (130-400); Red Blood Count 5.15 MC/CUMM (3.8-5.5); Red Cell Distribution Width 14.3 % (9.3-17.3)
[2020-07-11 06:14] LABS: Calcium 9.1 MG/DL (8.5-10.1); Osmolality,Calculated 286.4 MOS/KG (273-304); Potassium 3.6 MMOL/L (3.5-5.1)
[2020-07-11] MEDS: ROSUVASTATIN 20 MG TABLET PO SCH (09:35)
[2020-07-11] MEDS: ASPIRIN CHEW 81 MG TABLET PO SCH (09:35)
[2020-07-11] MEDS: carvediloL 6.25 MG TABLET PO SCH (09:35)
[2020-07-11] MEDS: AMIODARONE 200 MG TABLET PO SCH (09:35)
[2020-07-11] MEDS: CLOPIDOGREL 75 MG TABLET PO SCH (09:36)
[2020-07-11] MEDS: MINERAL OIL/PETROLATUM OPH OINT 3.5 GM TUBE BOTH EYES SCH (09:36)
[2020-07-11] MEDS: predniSONE 10 MG TABLET PO SCH (09:36)
[2020-07-11] MEDS: PANTOPRAZOLE 40 MG VIAL IV SCH (09:36)
[2020-07-11] MEDS: amLODIPine 10 MG TABLET PO SCH (09:36)
[2020-07-11 09:52] VITALS: BP 148/86
== END 2020-07-11 11:40 | DRG 280 ==
LOC: N.ED 09:11 → SUATTDRO 10:12 → N.EDINP 10:12 → N.ICU 10:17 → N.TELEN 07-08 15:26
PROVIDERS: ADMIT Internal Medicine Cardiovascular Disease; ATTEND Internal Medicine

== ENCOUNTER 2020-07-20 06:08 | Observation (INO) ==
[2020-07-20 06:56] LABS: Basophils # 0.1 10*3/uL (0.0-0.2); Eosinophils # 0.2 10*3/uL (0.0-0.87); Eosinophils % 2.6 % (0.00-10.9); Hematocrit 42.9 VOL% (42.0-52.0); Hemoglobin 13.9 GM/DL (14.0-18.0); Immature Granulocytes % 0.4 %; Immature Granulocytes Absolute 0.03 #; Lymphocytes # 2.6 10*3/uL (1.4-4.0); Lymphocytes % 31.4 % (21.2-54.2); Mean Corpuscular HGB Conc 32.4 GM/DL (32-36); Mean Platelet Volume 11.7 FL (9.6-12.0); Neutrophils % 57.6 % (38.7-73.9); Platelet Count 305 T/CUMM (130-400); Red Blood Count 4.93 MC/CUMM (3.8-5.5); Red Cell Distribution Width 14.6 % (9.3-17.3); White Blood Count 8.4 T/CUMM (4-12)
[2020-07-20 07:00] LABS: Bilirubin,Total 0.6 MG/DL (0.2-1.0); Calcium 8.9 MG/DL (8.5-10.1); Osmolality,Calculated 272.8 MOS/KG (273-304); Potassium 5.2 MMOL/L (3.5-5.1); Total Protein 8.2 G/DL (6.4-8.3)
[2020-07-20 07:24] LABS: Platelet Estimate Normal
[2020-07-20 07:25] LABS: Anisocytosis 1+; Macrocytosis Slight
[2020-07-20] MEDS ORDERED: NITROGLYCERIN SL 0.4 MG TABLET SL PRN (09:22)
[2020-07-20] MEDS ORDERED: NITROGLYCERIN SL 0.4 MG TABLET SL ONE (09:24)
[2020-07-20] MEDS ORDERED: FUROSEMIDE 40 MG/4 ML VIAL IV STA (09:59)
[2020-07-20] MEDS ORDERED: ONDANSETRON 4 MG/2 ML VIAL IV PRN (10:50)
[2020-07-20] MEDS ORDERED: GLUCAGON 1 MG VIAL IM PRN (10:50)
[2020-07-20] MEDS ORDERED: DEXTROSE 50% 25 GM/50 ML VIAL IV PRN (10:50)
[2020-07-20] MEDS ORDERED: PANTOPRAZOLE 40 MG TABLET PO SCH (11:00)
[2020-07-20] MEDS: AMIODARONE 200 MG TABLET PO SCH (11:49)
[2020-07-20] MEDS ORDERED: ENOXAPARIN 40 MG/0.4 ML SYRINGE SUBCUT SCH (12:00)
[2020-07-20] MEDS: carvediloL 6.25 MG TABLET PO SCH (18:14)
[2020-07-21 07:19] LABS: Osmolality,Calculated 270.1 MOS/KG (273-304); Potassium 4.1 MMOL/L (3.5-5.1)
[2020-07-21] MEDS ORDERED: MAGNESIUM SULF RIDER 2 GM in PREMIX 1 EACH IV ONE (08:38)
[2020-07-21] MEDS: CLOPIDOGREL 75 MG TABLET PO SCH (09:58)
[2020-07-21] MEDS: LOSARTAN/HCTZ 50-12.5 MG TABLET PO SCH (09:58)
[2020-07-21] MEDS: amLODIPine 10 MG TABLET PO SCH (09:58)
[2020-07-21] MEDS: ASPIRIN CHEW 81 MG TABLET PO SCH (09:58)
[2020-07-21] MEDS: carvediloL 12.5 MG TABLET PO SCH ×2 (09:58→20:46)
[2020-07-21] MEDS: ROSUVASTATIN 20 MG TABLET PO SCH (09:58)
[2020-07-21] MEDS: PANTOPRAZOLE 40 MG TABLET PO SCH ×2 (09:59→20:46)
[2020-07-21] MEDS: AMIODARONE 200 MG TABLET PO SCH (10:01)
[2020-07-21] MEDS: carvediloL 6.25 MG TABLET PO SCH (10:01)
[2020-07-21] MEDS: APIXABAN 5 MG TABLET PO SCH ×2 (10:10→20:46)
[2020-07-22 06:12] LABS: Basophils # 0.1 10*3/uL (0.0-0.2); Basophils % 0.7 % (0.0-0.8); Eosinophils # 0.1 10*3/uL (0.0-0.87); Eosinophils % 1.5 % (0.00-10.9); Hemoglobin 12.7 GM/DL (14.0-18.0); Immature Granulocytes % 0.5 %; Immature Granulocytes Absolute 0.04 #; Lymphocytes # 1.8 10*3/uL (1.4-4.0); Lymphocytes % 20.7 % (21.2-54.2); Mean Corpuscular HGB Conc 32.6 GM/DL (32-36); Mean Corpuscular Volume 85.9 FL (87-102); Mean Platelet Volume 11.5 FL (9.6-12.0); Monocytes % 8.3 % (1.7-12.7); Neutrophils % 68.3 % (38.7-73.9); Platelet Count 265 T/CUMM (130-400); Red Blood Count 4.54 MC/CUMM (3.8-5.5); Red Cell Distribution Width 14.4 % (9.3-17.3); White Blood Count 8.8 T/CUMM (4-12)
[2020-07-22 06:34] LABS: Calcium 8.8 MG/DL (8.5-10.1); Osmolality,Calculated 273.1 MOS/KG (273-304); Potassium 3.8 MMOL/L (3.5-5.1)
[2020-07-22 06:35] LABS: Hypochromasia Slight; Macrocytosis Slight; Platelet Estimate Adequate
[2020-07-22] MEDS: amLODIPine 10 MG TABLET PO SCH (08:42)
[2020-07-22] MEDS: APIXABAN 5 MG TABLET PO SCH (08:42)
[2020-07-22] MEDS: ASPIRIN CHEW 81 MG TABLET PO SCH (08:42)
[2020-07-22] MEDS: carvediloL 12.5 MG TABLET PO SCH (08:42)
[2020-07-22] MEDS: LOSARTAN/HCTZ 50-12.5 MG TABLET PO SCH (08:42)
[2020-07-22] MEDS: ROSUVASTATIN 20 MG TABLET PO SCH (08:42)
[2020-07-22] MEDS: CLOPIDOGREL 75 MG TABLET PO SCH (08:42)
[2020-07-22] MEDS: PANTOPRAZOLE 40 MG TABLET PO SCH (08:42)
[2020-07-22 11:46] VITALS: BP 114/62
== END 2020-07-22 13:04 | disposition home or self-care (01) ==
LOC: N.EDINP 06:08 → N.ED 06:08 → N.TELEN 14:48
PROVIDERS: ADMIT Internal Medicine; ATTEND Internal Medicine